=== PATIENT | male | born 2000 | race Caucasian/White ===

== ENCOUNTER 2020-01-04 19:35 | Emergency (ER) | payer BC, OTHER ==
[~2020-01-04] VITALS: Ht 188 cm; Wt 118.0 kg
--- NOTE | 2020-01-04 19:38 | PHYS DOC ---
Past History Past Medical History: No Pertinent History, Hypertension Past Surgical History: No Surgical History Smoking: Non-smoker Alcohol Use: None Drug Use: None Adult General Chief Complaint Chief Complaint: ".. I ve been dizzy... "... " My BP is up..." and I am having one of my migraines..." HPI HPI Patient is a 19 year old male who presents with above hx and complaints of dizzy episode with migraines. Dizziness and headache present the last 2 days. Pt. has long history of occasional migraines. Patient does have a follow-up appointment with a primary care and [facility]. No history of trauma. No history of travel outside the [facility] area. Patient reports that his headache currently is like typical migraine. Patient also had recent episodes of elevated blood pressure last several weeks on intermittent checks.. Patient denies any illicit drug use. Patient denies any previous history of cardiac problems. Has family history of cardiac disease with grandfather and there is family history of hypertension. No history of sudden unexpected in family or cardiac dysrhythmias that are inherited. No history of fevers. No history of chills. No history immunosuppression. No specific ill contacts. Review of Systems Review of Systems Constitutional: Denies fever or chills [] Eyes: Denies change in visual acuity, redness, or eye pain [] HENT: Denies nasal congestion or sore throat [] Respiratory: Denies cough or shortness of breath [] Cardiovascular: No additional information not addressed in HPI [] GI: Denies abdominal pain, nausea, vomiting, bloody stools or diarrhea [] : Denies dysuria or hematuria [] Musculoskeletal: Denies back pain or joint pain [] Integument: Denies rash or skin lesions [] Neurologic: Complaints of a migraine headache, and dizziness. Patient denies focal weakness or sensory changes [] Endocrine: Denies polyuria or polydipsia [] All other systems were reviewed and found to be within normal limits, except as documented in this note. Family History Family History Cardiac disease and hypertension Current Medications Current Medications See nursing for home meds Allergies Allergies Allergies Coded Allergies Type Severity Reaction Last Updated Verified No Known Drug Allergies 09/28/14 No Physical Exam Physical Exam Constitutional: Moderate acute distress, non-toxic appearance. [] HENT: Normocephalic, atraumatic, bilateral external ears normal, oropharynx moist, no oral exudates, nose normal. [] Eyes: PERRLA, EOMI, conjunctiva normal, no discharge. Fundus benign Neck: Normal range of motion, no tenderness, supple, no stridor. [] Cardiovascular:Heart rate regular rhythm, no murmur [] Lungs & Thorax: Bilateral breath sounds clear to auscultation [] Abdomen: Bowel sounds normal, soft, no tenderness, no masses, no pulsatile rita s. [] Skin: Warm, dry, no erythema, no rash. [] Back: No tenderness, no CVA tenderness. [] Extremities: No tenderness, no cyanosis, no clubbing, ROM intact, no edema. [] Neurologic: Alert and oriented X 3, normal motor function, normal sensory function, no focal deficits noted. []DTRs +2 patella and brachial. Attempt without problems. No drift. 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 Psychologic: Affect anxious, judgement normal, mood normal. [] EKG EKG My interpretation EKG shows a sinus rhythm at 86 bpm. There is some bimodal P- wave's and left atrial leads. There is a intraventricular block. But no findings acute STEMI with contralateral changes. Is a abnormal EKG[] Radiology/Procedures Radiology/[place] [address] IMAGING REPORT Signed PATIENT: RONEY RAMIREZ ACCOUNT: [id number] : 2000 LOCATION: ER AGE: 19 SEX: M EXAM STATUS: REG ER ORD. PHYSICIAN: SHAWN LOPEZ MD REASON: htn PROCEDURE: CHEST PA & LATERAL CHEST PA LATERAL INDICATION: Hypertension. COMPARISON STUDY: None. FINDINGS: Lungs: Normal lung volume. No pulmonary mass or consolidation. The tracheobronchial tree and hilar structures are normal. Pleura: No pleural effusion or pneumothorax. Heart and Mediastinum: The cardiomediastinal silhouette is normal. The great vessels of the thorax are normal. Bones and Soft Tissues: The bones and soft tissues are within normal limits. IMPRESSION: No acute cardiopulmonary process. Electronically signed by: Yonas Henao MD (01/05/2020 1:13 AM) [id number] DICTATED AND SIGNED BY: YONAS HENAO MD DATE: 01/05/20112 CC: SHAWN LOPEZ MD; PCP,NO ~ [][place] [address] IMAGING REPORT Signed PATIENT: RONEY RAMIREZ ACCOUNT: [id number] : 2000 LOCATION: ER AGE: 19 SEX: M EXAM STATUS: REG ER ORD. PHYSICIAN: SHAWN LOPEZ MD REASON: head ache, dizzy, neck pain, X 2 HOURS, H/O CONCUSSIONS, MIGRAINE PROCEDURE: CT HEAD AND CERVICAL SPINE WO Exam: CT head and cervical spine without contrast INDICATION: Headache, dizzy, neck pain TECHNIQUE: Sequential axial images through the head and cervical spine were obtained without the administration of IV contrast. Comparisons: None FINDINGS: Head: No focal parenchymal lesion or hemorrhage is identified. There is no midline shift or sulcal effacement. No acute vascular territory infarction is identified. Bustillos-white distinction is preserved. The ventricular system is within normal limits without compression hydrocephalus. The basal cisterns are well maintained. The visualized portions of the paranasal sinuses and mastoid air cells are well-pneumatized. No acute fractures. Cervical spine: Straightening of cervical spine which may be positional. Vertebral body heights are well-maintained. Fracture to the cervical spine is not identified. Mild degenerative disc disease greatest at C4-C5, C5-C6 and C6-C7. Bilateral facet arthropathy is noted in cervical spine. Visualized paraspinal soft tissues are unremarkable. IMPRESSION: 1. No acute intracranial abnormality. 2. Negative CT C-spine for acute traumatic injury. Exposure: One or more of the following in the visualized dose reduction techniques were utilized for this examination: 1. Automated exposure control 2. Adjustment of the MA and/or KV according to patient size Use of iterative of reconstructive technique Electronically signed by: Amrita Miller MD (01/04/2020 9:37 PM) [id number] DICTATED AND SIGNED BY: AMRITA MILLER MD DATE: 01/04/202136 CC: SHAWN LOPEZ MD; PCP,NO ~ Course & Med Decision Making Course & Med Decision Making Pertinent Labs and Imaging studies reviewed. (See chart for details) Patient declines admission-exhibits [facility] capacity. Patient is aware his EKG is abnormal and recommendation for admission for further evaluation and cardiology consult. Begged pt. to consider at least a short stay with repeat enzymes and EKG. Patient take a daily aspirin. Patient avoid caffeine. Avoid excessive alcohol intake. Return anytime. Must keep follow-up with primary care. Leave clonidine patch on until follow-up.. Impression: 1. Migraine headache 2. Intraventricular Block 3. Hypertension 4. Hx. of Dizzy episodes. [ Dragon Disclaimer Dragon Disclaimer This electronic medical record was generated, in whole or in part, using a voice recognition dictation system. Departure Departure: Disposition: HOME/RESIDENCE PRIOR TO ADM Condition: STABLE Referrals: PCP,NO (PCP) Dragon Disclaimer This chart was dictated in whole or in part using Voice Recognition software in a busy, high-work load, and often noisy Emergency Department environment. It may contain unintended and wholly unrecognized errors or omissions. Dragon Disclaimer This chart was dictated in whole or in part using Voice Recognition software in a busy, high-work load, and often noisy Emergency Department environment. It may contain unintended and wholly unrecognized errors or omissions. SHAWN LOPEZ MD Jan 04, 2020 19:38
[2020-01-04] MEDS ORDERED: IV RINGERS SOLUTION,LACTATED 1,000 ML IV SCH (19:39)
[2020-01-04] MEDS ORDERED: ONDANSETRON PF 4 MG/2 ML VIAL. IVP ONE (21:00)
[2020-01-04] MEDS ORDERED: cloNIDine TTS-2 1 PATCH PATCH TD ONE (21:00)
--- NOTE | 2020-01-04 21:40 | RAD ---
Exam: CT head and cervical spine without contrast INDICATION: Headache, dizzy, neck pain TECHNIQUE: Sequential axial images through the head and cervical spine were obtained without the administration of IV contrast. Comparisons: None FINDINGS: Head: No focal parenchymal lesion or hemorrhage is identified. There is no midline shift or sulcal effacement. No acute vascular territory infarction is identified. Bustillos-white distinction is preserved. The ventricular system is within normal limits without compression hydrocephalus. The basal cisterns are well maintained. The visualized portions of the paranasal sinuses and mastoid air cells are well-pneumatized. No acute fractures. Cervical spine: Straightening of cervical spine which may be positional. Vertebral body heights are well-maintained. Fracture to the cervical spine is not identified. Mild degenerative disc disease greatest at C4-C5, C5-C6 and C6-C7. Bilateral facet arthropathy is noted in cervical spine. Visualized paraspinal soft tissues are unremarkable. IMPRESSION: 1. No acute intracranial abnormality. 2. Negative CT C-spine for acute traumatic injury. Exposure: One or more of the following in the visualized dose reduction techniques were utilized for this examination: 1. Automated exposure control 2. Adjustment of the MA and/or KV according to patient size Use of iterative of reconstructive technique Electronically signed by: Amrita Cole MD (01/04/2020 9:37 PM) [id number]
[2020-01-04 22:10] LABS: BASO % 0 % (0-3); EOS # 0.1 x10^3/uL (0.0-0.7); EOS % 1 % (0-3); HEMATOCRIT 45.3 % (39.0-53.0); HEMOGLOBIN 15.3 g/dL (13.0-17.5); LYMPH # 2.2 x10^3/uL (1.0-4.8); LYMPH % 20 % (24-48); MEAN CORPUSCULAR HEMOGLOBIN 29 pg (25-35); MEAN CORPUSCULAR HGB CONC 34 g/dL (31-37); MEAN CORPUSCULAR VOLUME 85 fL (79-100); MONO # 1.1 x10^3/uL (0.0-1.1); MONO % 10 % (0-9); NEUT # 7.5 x10^3uL (1.8-7.7); NEUT % 69 % (31-73); PLATELET COUNT 254 x10^3/uL (140-400); RED BLOOD COUNT 5.32 x10^6/uL (4.30-5.70); RED CELL DISTRIBUTION WIDTH 14.7 % (11.5-14.5); WHITE BLOOD COUNT 10.8 x10^3/uL (4.0-11.0)
[2020-01-04 22:20] LABS: CALCIUM 8.4 mg/dL (8.5-10.1); CREATININE 1.1 mg/dL (0.7-1.3); GFR 84.5; POTASSIUM 3.7 mmol/L (3.5-5.1)
[2020-01-04] MEDS ORDERED: ASPIRIN 325 MG TABLET PO ONE (22:30)
[2020-01-04 22:34] LABS: ALBUMIN 3.9 g/dL (3.4-5.0); DIRECT BILIRUBIN 0.1 mg/dL (0.0-0.2); TOTAL BILIRUBIN 0.3 mg/dL (0.2-1.0); TOTAL PROTEIN 7.4 g/dL (6.4-8.2)
[2020-01-04] MEDS ORDERED: KETOROLAC 30 MG/ML VIAL. IVP ONE (22:45)
[2020-01-04 22:53] LABS: BARBITURATES NEG (NEG); BENZODIAZEPINES NEG (NEG); CANNABINOIDS NEG (NEG); COCAINE NEG (NEG); METHADONE NEG (NEG); OPIATES NEG (NEG); PHENCYCLIDINE NEG (NEG)
--- NOTE | 2020-01-04 23:01 | EKG ---
[address] [address] Test Date: 2020-01-04 Test Time: 19:56:58 Pat Name: RONEY RAMIREZ Department: Room: Gender: M X [employer] Technologist: : 2000 Requested By: SHAWN LOPEZ Order Number: [id number] Reading MD: Measurements Intervals Coward Rate: 86 P: 68 MS: 152 QRS: 29 QRSD: 134 T: 62 QT: 392 QTc: 472 Interpretive Statements SINUS RHYTHM LEFT ATRIAL ABNORMALITY LOW LIMB LEAD VOLTAGE NON SPECIFIC INTRAVENTRICULAR BLOCK ABNORMAL ECG RI6.01 No previous ECG available for comparison
[2020-01-04 23:05] LABS: BACTERIA,URINE 0 /HPF (0-FEW); BILIRUBIN,URINE NEG (NEG); CLARITY,URINE CLEAR; COLOR,URINE YELLOW; GLUCOSE,URINE NEG (NEG); NITRITE,URINE NEG (NEG); RBC,URINE 0 /HPF (0-2); SQUAMOUS EPITHELIAL CELL,UR OCC /LPF; UROBILINOGEN,URINE 0.2 mg/dL (0.2 mg/dL); WBC,URINE RARE /HPF (0-4)
[2020-01-04 23:09] LABS: AMPHETAMINE/METHAMPHETAMINE NEG (NEG)
[2020-01-05 01:00] VITALS: BP 128/54
--- NOTE | 2020-01-05 01:16 | RAD ---
CHEST PA LATERAL INDICATION: Hypertension. COMPARISON STUDY: None. FINDINGS: Lungs: Normal lung volume. No pulmonary mass or consolidation. The tracheobronchial tree and hilar structures are normal. Pleura: No pleural effusion or pneumothorax. Heart and Mediastinum: The cardiomediastinal silhouette is normal. The great vessels of the thorax are normal. Bones and Soft Tissues: The bones and soft tissues are within normal limits. IMPRESSION: No acute cardiopulmonary process. Electronically signed by: Farrukh Henao MD (01/05/2020 1:13 AM) [id number]
== END 2020-01-05 01:15 | disposition home or self-care (01) ==
LOC: ER 19:35
DX: G43.909 Migraine, unspecified, not intractable, without status migrainosus (principal); I10 Essential (primary) hypertension; I45.4 Nonspecific intraventricular block; R42 Dizziness and giddiness
CPT/HCPCS: 36415; 70450; 71046; 72125; 80048; 80076; 80307; 81001; 82550; 83690; 83735; 83880; 84443; 84484; 85025; 85379; 85610; 85730; 93005; 96361; 96374; 96375; 99285; G0480; J1885; J2405; J7120